=== PATIENT | male | born 1990 | race African-American/Black ===

== ENCOUNTER → 2017-02-23 | Outpatient (REF) | payer OTHER ==
[~2017-02-23] MED LIST: IBUP-1022 PO
[2017-02-23 18:32] LABS: ALBUMIN 3.8 GM/DL (3.2-5.2); ALBUMIN/GLOBULIN RATIO 1.19 (1.00-1.93); ALKALINE PHOSPHATASE 78 U/L (45-117); ALT/SGPT 34 U/L (12-78); ANION GAP 5 MEQ/L (8-16); AST/SGOT 23 U/L (15-37); BILIRUBIN,TOTAL 0.5 MG/DL (0.2-1.0); BLOOD UREA NITROGEN 8 MG/DL (7-18); CARBON DIOXIDE LEVEL 29 MEQ/L (21-32); CHLORIDE LEVEL 107 MEQ/L (98-107); GLOMERULAR FILTRATION RATE > 60.0 (>60); GLUCOSE, FASTING 82 MG/DL (70-105); POTASSIUM SERUM 4.8 MEQ/L (3.5-5.1); SODIUM LEVEL 141 MEQ/L (136-145)
== END ==
LOC: M SFHCLERA 16:19 → MERGE 16:19
PROVIDERS: ATTEND Family Medicine
DX: R74.8 Abnormal levels of other serum enzymes (principal)

== ENCOUNTER → 2017-03-01 | Outpatient (CLI) | payer OTHER ==
--- NOTE | 2017-03-01 08:44 | REP ---
Abdominal right upper quadrant ultrasound for elevated liver function tests: There is no cholelithiasis, gallbladder wall thickening or pericholecystic fluid. There is no intrahepatic or extrahepatic biliary duct dilatation, the common duct measures 6.3 mm in diameter. The hepatic parenchyma is homogeneous and otherwise unremarkable. The visualized portion of the pancreatic head is unremarkable. The pancreatic body and tail are obscured by bowel gas. There is no right renal calculus, mass, cyst or hydronephrosis. The right kidney is normal size measuring 11.4 cm craniocaudad length. Impression: Essentially normal abdominal right upper quadrant ultrasound. Signed by Juan Berg MD 03/01/2017 08:35 A
== END ==
LOC: M RAD 06:30
PROVIDERS: ATTEND Transplant Surgery
DX: R74.8 Abnormal levels of other serum enzymes (principal)

== ENCOUNTER → 2017-03-28 | Outpatient (REF) | payer OTHER ==
[2017-03-28 13:01] LABS: % NORMAL FORMS 4 % (>=4); IMMOTILITY 52 %; NON PROGRESSIVE MOTILITY (c) 30 %; PROGRESSIVE MOTILITY (a) 18 % (>=32); SPERM# 28.9 M/Ejac (>=39); TOTAL FUNCTIONAL 0.5 M/Ejac.; TOTAL MOTILITY 48 % (>=40); TOTAL PROGRESSIVE SPERM 5.2 M/Ejac.
== END ==
LOC: M SMT 12:06
PROVIDERS: ATTEND Nurse Practitioner Women's Health
DX: N46.9 Male infertility, unspecified (principal)

== ENCOUNTER 2017-05-01 12:23 | Emergency (ER) | payer OTHER ==
[~2017-05-01] VITALS: Ht 180.3 cm; Wt 116.6 kg
--- NOTE | 2017-05-01 14:50 | REP ---
LEFT LOWER EXTREMITY DUPLEX DOPPLER VENOUS ULTRASOUND: Real-time compression and duplex Doppler interrogation of left lower extremity deep venous system is performed. Left common femoral, superficial femoral, and popliteal veins are fully compressible with transducer pressure and demonstrate normal spontaneous and phasic flow without evidence of deep venous thrombosis. In the left calf, there is a palpable abnormality, and at that location there is an oval heterogeneous hypoechoic soft tissue mass which measures 4.0 x 1.4 x 2.3 cm. There is internal blood flow with duplex Doppler evaluation with an area of bidirectional flow. This could represent a pseudoaneurysm with internal thrombosis. Alternatively, this could represent a vascular soft tissue mass. Signed by Juan Bowman MD 05/02/2017 07:55 P
[2017-05-01] MEDS ORDERED: NS 1,000 ML IV ONE (15:00)
[2017-05-01 15:22] LABS: MEAN CORPUSCULAR HEMOGLOBIN 27.1 pg (27.0-33.0); MEAN CORPUSCULAR HGB CONC 32.5 g/dl (32.0-36.5); MEAN CORPUSCULAR VOLUME 83.4 fl (80.0-96.0); RED CELL DISTRIBUTION WIDTH 14.3 % (11.5-14.5); WHITE BLOOD COUNT 5.7 10^3/uL (4.0-10.0)
[2017-05-01 15:35] LABS: INR 0.9
[2017-05-01 15:47] LABS: ANION GAP 8 MEQ/L (8-16); BLOOD UREA NITROGEN 7 MG/DL (7-18); CALCIUM LEVEL 8.5 MG/DL (8.5-10.1); CARBON DIOXIDE LEVEL 28 MEQ/L (21-32); CHLORIDE LEVEL 107 MEQ/L (98-107); CREATININE FOR GFR 0.98 MG/DL (0.70-1.30); GLOMERULAR FILTRATION RATE > 60.0 (>60); GLUCOSE, FASTING 91 MG/DL (70-105); SODIUM LEVEL 143 MEQ/L (136-145)
[2017-05-01] MEDS ORDERED: ISOVUE-370 76% 100ML VIAL (Q9967) As Ordered ONE (15:57)
[2017-05-01] MEDS ORDERED: IBUP-1022 PO (16:19)
[2017-05-01 16:42] VITALS: BP 129/69
--- NOTE | 2017-05-01 16:47 | REP ---
CT ANGIOGRAM LOWER EXTREMITIES: CT angiogram lower extremities performed in the axial plane with sagittal and coronal reconstruction images following the intravenous administration of 100 mL of Isovue-370. In the anteromedial proximal left calf there is an oval soft tissue nodule which measures approximately 2.3 cm in diameter with surrounding streaky densities in the surround fat. This is nonspecific. There is no evidence of a pseudoaneurysm. No enhancing vascular structures are seen in this region. The bilateral common iliac, external iliac, common femoral, superficial femoral and popliteal arteries are widely patent with no evidence of pseudoaneurysm. The trifurcation arteries are also widely patent with no pseudoaneurysm, visualized down to the level of the midcalf. The visualized intrapelvic structures are unremarkable with no mass, adenopathy or free fluid. Normal sized inguinal lymph nodes are seen bilaterally. IMPRESSION: No CT angiographic evidence of pseudoaneurysm. Nonspecific rounded soft tissue nodule proximal left calf anteromedially with surrounding streaky edema or inflammatory change in subcutaneous fat. Signed by Juan Bowman MD 05/02/2017 07:56 P
== END 2017-05-01 16:44 | disposition home or self-care (01) ==
LOC: M ED 12:23
DX: I82.402 Acute embolism and thrombosis of unspecified deep veins of left lower extremity (principal); F17.210 Nicotine dependence, cigarettes, uncomplicated
CPT/HCPCS: 36415; 73706; 80048; 85027; 85610; 85730; 86850; 86900; 86901; 93971; 99283; Q9967

== ENCOUNTER → 2017-06-13 | Outpatient (CLI) | payer OTHER ==
[2017-06-13 13:53] LABS: LUTEINIZING HORMONE 5.2 mIU/mL (1.5-9.3); PROLACTIN 11.1 NG/ML (2.1-17.7)
[2017-06-13 13:54] LABS: ESTRADIOL 29.2 PG/ML (<39.8); FOLLICLE STIMULATING HORMONE 7.3 mIU/mL (1.4-18.1)
== END ==
LOC: M SMT 08:59
PROVIDERS: ATTEND Nurse Practitioner Women's Health
DX: N46.9 Male infertility, unspecified (principal)
CPT/HCPCS: 36415; 82670; 83001; 83002; 84146; 84402; 84403; G0463

== ENCOUNTER → 2017-06-29 | Outpatient (REF) | payer OTHER ==
[2017-06-29 14:13] LABS: #MOTILE SPERM COUNTED 1.5; % MOTILITY 20 (> 40%); SPERM ABNORMAL FORMS WBC'S NOTED; TOTAL # SPERM COUNTED 7.5 M/ml
== END ==
LOC: M SMT 13:55
PROVIDERS: ATTEND Nurse Practitioner Women's Health
DX: N46.9 Male infertility, unspecified (principal)